=== PATIENT | male | born 1960 | race Caucasian/White ===

== ENCOUNTER 2024-12-29 11:29 | Inpatient (IN) | payer SELFPAY ==
[2024-12-29] VITALS (7 sets, daily range): BP systolic 132–138; BP diastolic 81–86; PULSE 62–101; RESP 16–20; TEMP 36.3–37; O2SAT 97–98
[~2024-12-29] VITALS: Ht 193 cm; Wt 98.0 kg
[2024-12-29] MEDS: MORPHINE SULFATE 4 MG/ML INJ (FOR IV/IM USE) IM ONE (12:15)
[2024-12-29 12:18] LABS: BASOPHILS % 0.8 % (0.0-2.0); EOSINOPHILS % 2.3 % (0.0-5.0); HEMATOCRIT. 35.1 % (42.0-52.0); HEMOGLOBIN. 11.9 g/dL (14.0-18.0); LYMPHOCYTES % 12.6 % (20.0-50.0); MEAN CORPUSCULAR HEMOGLOBIN 28.8 pg (28.0-32.0); MEAN CORPUSCULAR VOLUME 84.7 fL (80.0-94.0); MEAN PLATELET VOLUME 7.2 fl (7.4-10.4); MONOCYTES % 7.4 % (2.0-8.0); NEUTROPHILS % 76.9 % (40.0-76.0); PLATELET 268 x1000/uL (130-400); RED BLOOD CELL COUNT 4.14 mill/uL (4.7-6.1); RED CELL DISTRIBUTION WIDTH 13.6 % (11.6-14.6)
[2024-12-29 12:33] LABS: CHLORIDE 106 mEq/L (98-107); POTASSIUM 3.8 mEq/L (3.5-5.1); SODIUM 142 mEq/L (136-145)
[2024-12-29 12:34] LABS: CARBON DIOXIDE 26 mEq/L (21-32)
[2024-12-29 12:39] LABS: CREATININE 0.8 mg/dL (0.6-1.3); GLUCOSE 106 mg/dL (70-105); TROPONIN I HIGH SENSITIVITY 4 ng/L (3.0-53); UREA NITROGEN BLOOD 14 mg/dL (9-23)
[2024-12-29] MEDS: MORPHINE SULFATE 2 MG/ML INJ (NOT FOR IM USE) IV NR (14:55)
[2024-12-29] MEDS ORDERED: METO25TA6 PO (16:02)
[2024-12-29] MEDS ORDERED: APIX5TAB PO (16:03)
[2024-12-29] MEDS ORDERED: ENAL-79 PO (16:03)
[2024-12-29] MEDS ORDERED: PREG300C PO (16:04)
[2024-12-29] MEDS ORDERED: SIMV-43 PO (16:11)
[2024-12-29] MEDS ORDERED: ASPI-1497 PO (16:12)
[2024-12-29] MEDS ORDERED: ACETAMINOPHEN 325MG TABLET PO PRN ×2 (17:00)
[2024-12-29] MEDS: ISOSORBIDE DINITRATE 20MG TABLET PO SCH (17:00)
[2024-12-29] MEDS ORDERED: DIPHENHYDRAMINE 50MG/ML VIAL IV PRN (17:00)
[2024-12-29] MEDS ORDERED: MAGNESIUM/ALUMINUM HYDROXIDE/SIMETHICONE 30ML UDC PO PRN (17:00)
[2024-12-29] MEDS ORDERED: CLONIDINE 0.1MG TABLET PO PRN (17:00)
[2024-12-29] MEDS ORDERED: ONDANSETRON HCL 4MG/2ML INJ IV PRN (17:00)
[2024-12-29] MEDS ORDERED: ZOLPIDEM TARTRATE 5MG TABLET PO PRN (17:00)
[2024-12-29] MEDS ORDERED: NALOXONE HCL 0.4MG/ML VIAL IV PRN (17:15)
[2024-12-29] MEDS: MORPHINE SULFATE 2 MG/ML INJ (NOT FOR IM USE) IV PRN (17:26)
[2024-12-29] MEDS: PREGABALIN 75MG CAPSULE PO SCH (17:26)
[2024-12-29 18:37] LABS: PROTHROMBIN TIME 10.4 sec (9.6-11.0)
[2024-12-29] MEDS: ENOXAPARIN 100MG/ML SYR SUBCUT SCH (19:30)
[2024-12-29] MEDS ORDERED: APIXABAN 5 MG TABLET PO SCH (21:00)
[2024-12-29] MEDS ORDERED: ENALAPRIL 5MG TABLET PO SCH (21:00)
[2024-12-29] MEDS ORDERED: METOPROLOL TARTRATE 25MG TABLET PO SCH (21:00)
[2024-12-29] MEDS: LISINOPRIL 20MG TABLET PO SCH (21:15)
[2024-12-29] MEDS: ATORVASTATIN CALCIUM 20MG TABLET PO SCH (21:15)
[2024-12-29] MEDS: SODIUM CHLORIDE 0.9% 3ML FLUSH IVF SCH (21:16)
[2024-12-30] VITALS (7 sets, daily range): BP systolic 86–101; BP diastolic 45–66; PULSE 58–85; RESP 16–18; TEMP 36.4–37.1; O2SAT 97–98
[2024-12-30] MEDS ORDERED: ENOXAPARIN 100MG/ML SYR SUBCUT SCH (09:00)
[2024-12-30] MEDS: METOPROLOL SUCCINATE 50MG ER TABLET PO SCH (09:00)
[2024-12-30] MEDS ORDERED: REGADENOSON 0.4 MG/5 ML IV NR (10:00)
[2024-12-30] MEDS ORDERED: ONDANSETRON HCL 4MG/2ML INJ IV PRN (11:15)
[2024-12-30] MEDS ORDERED: SODIUM CHLORIDE 0.9% 100 ML IV ONE ×2 (13:15→14:15)
[2024-12-30 13:17] LABS: TROPONIN I HIGH SENSITIVITY < 4 ng/L (3.0-53)
[2024-12-30] MEDS: SODIUM CHLORIDE 0.9% 1,000 ML IV ONE (14:31)
[2024-12-30 17:11] LABS: TROPONIN I HIGH SENSITIVITY < 4 ng/L (3.0-53)
[2024-12-30] MEDS ORDERED: MORPHINE SULFATE 2 MG/ML INJ (NOT FOR IM USE) IV PRN (23:00)
[2024-12-31] VITALS: BP 120/82; PULSE 75; RESP 18; TEMP 36.8; O2SAT 100
[2024-12-31 04:00] VITALS: BP 134/84; PULSE 67; RESP 20; TEMP 36.9; O2SAT 100
== END 2024-12-31 05:20 | disposition left against medical advice (07) | DRG 198 ==
LOC: ER 11:29 → EDBEDREQ 13:31 → EDBEDREQTM 13:31 → ENRESERV 14:33 → 7WST 16:34
PROVIDERS: ADMIT Internal Medicine; ATTEND Internal Medicine
DX: I25.110 Atherosclerotic heart disease of native coronary artery with unstable angina pectoris (principal); I11.0 Hypertensive heart disease with heart failure; I50.9 Heart failure, unspecified; E78.00 Pure hypercholesterolemia, unspecified; R07.89 Other chest pain; Z79.01 Long term (current) use of anticoagulants; I48.0 Paroxysmal atrial fibrillation; Z60.2 Problems related to living alone; G89.29 Other chronic pain; M54.9 Dorsalgia, unspecified; Z53.21 Procedure and treatment not carried out due to patient leaving prior to being seen by health care provider; Z86.718 Personal history of other venous thrombosis and embolism; I25.2 Old myocardial infarction; Z95.810 Presence of automatic (implantable) cardiac defibrillator; Z95.5 Presence of coronary angioplasty implant and graft; Z79.899 Other long term (current) drug therapy; Z88.8 Allergy status to other drugs, medicaments and biological substances
CPT/HCPCS: 36415; 71045; 80048; 83880; 84484; 85025; 93005; 99285; A4606; J2270

== ENCOUNTER 2025-04-10 16:39 | Emergency (ER) | payer MEDICAID ==
[~2025-04-10] VITALS: Ht 193 cm; Wt 91.0 kg
[~2025-04-10 16:39] MED LIST: APIX5TAB PO; ASPI-1497 PO; ENAL-79 PO; METO25TA6 PO; PREG300C PO; SIMV-43 PO
[2025-04-10 16:49] VITALS: O2SAT 97
[2025-04-10 17:58] LABS: BASOPHILS % 1.1 % (0.0-2.0); EOSINOPHILS % 3.8 % (0.0-5.0); HEMATOCRIT. 31.9 % (42.0-52.0); HEMOGLOBIN. 10.2 g/dL (14.0-18.0); LYMPHOCYTES % 19.8 % (20.0-50.0); MEAN PLATELET VOLUME 7.3 fl (7.4-10.4); MONOCYTES % 9.6 % (2.0-8.0); NEUTROPHILS % 65.7 % (40.0-76.0); PLATELET 336 x1000/uL (130-400); RED BLOOD CELL COUNT 4.02 mill/uL (4.7-6.1); RED CELL DISTRIBUTION WIDTH 16.3 % (11.6-14.6)
[2025-04-10 18:09] LABS: CREATININE 1.0 mg/dL (0.6-1.3); UREA NITROGEN BLOOD 19 mg/dL (9-23)
[2025-04-10 19:01] LABS: TROPONIN I HIGH SENSITIVITY 5 ng/L (3.0-53)
[2025-04-10] MEDS ORDERED: ASPIRIN 81MG EC TABLET PO ONE (20:00)
[2025-04-10 20:27] VITALS: BP 131/74; PULSE 77; RESP 14; TEMP 36.8; O2SAT 99
== END 2025-04-10 20:06 | disposition left against medical advice (07) ==
LOC: EDBD → ER 16:39 → EDBEDREQ 20:44 → EDBEDREQTM 20:44 → CMPBEDREQ 04-11 07:25
DX: R07.89 Other chest pain (principal); R42 Dizziness and giddiness; R53.1 Weakness; E78.00 Pure hypercholesterolemia, unspecified; I10 Essential (primary) hypertension; I25.2 Old myocardial infarction; Z79.01 Long term (current) use of anticoagulants; Z79.82 Long term (current) use of aspirin; Z79.899 Other long term (current) drug therapy; Z86.718 Personal history of other venous thrombosis and embolism; Z88.8 Allergy status to other drugs, medicaments and biological substances; Z95.0 Presence of cardiac pacemaker
CPT/HCPCS: 36415; 71045; 80048; 84484; 85025; 93005; 99285